=== PATIENT | male | born 1965 | race Caucasian/White ===

== ENCOUNTER 2020-01-02 20:58 | Emergency (ER) | payer OTHER ==
[~2020-01-02] VITALS: Ht 190.5 cm; Wt 128.0 kg
[2020-01-02 21:10] VITALS: BP 137/85
[2020-01-02] MEDS ORDERED: DIPH,PERTUSS(ACELL),TET VAC/PF 0.5 ML SYRINGE. VAX IM ONE (21:45)
[2020-01-02] MEDS ORDERED: LIDOCAINE 2% 20 ML VIAL. IJ ONE (21:45)
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
[2020-01-02] MEDS ORDERED: BACI28.34 TP (22:35)
[2020-01-02] MEDS ORDERED: HYDR-1179 PO (22:35)
[2020-01-02] MEDS ORDERED: CEPH-264 PO (22:35)
[2020-01-02] MEDS ORDERED: ACET500T68 PO (22:35)
[2020-01-02] MEDS ORDERED: cefTRIAXone IM 1 GM VIAL IM ONE (23:00)
== END 2020-01-02 22:45 | disposition home or self-care (01) ==
LOC: ER 20:58
DX: S61.412A Laceration without foreign body of left hand, initial encounter (principal); W22.8XXA Striking against or struck by other objects, initial encounter; Y93.89 Activity, other specified; Y92.89 Other specified places as the place of occurrence of the external cause; Y99.8 Other external cause status
CPT/HCPCS: 12002; 73130; 90471; 90715; 99284; J0696; J2001

== ENCOUNTER 2020-09-16 23:43 | Emergency (ER) | payer OTHER ==
[~2020-09-16] VITALS: Ht 193 cm; Wt 113.0 kg
[~2020-09-16 23:43] MED LIST: ACET500T68 PO; BACI28.34 TP; CEPH-264 PO; HYDR-1179 PO
[2020-09-16 23:51] VITALS: BP 145/96
[2020-09-17] MEDS ORDERED: IV RINGERS SOLUTION,LACTATED 1,000 ML IV SCH (00:30)
--- NOTE | 2020-09-17 00:32 | PHYS DOC ---
Past History Past Medical History: No Pertinent History Past Surgical History: Appendectomy, Other Additional Past Surgical Histo: UMBILICAL HERNIA, dental implants Alcohol Use: Occasionally General Adult EDM: Chief Complaint: ABDOMINAL PAIN HPI: HPI: "..I feel like I am blocked up.. obstructed... I think .. I ate too much meat.. Celebrating my daughter's job as a joinery machinist at [employer].. Patient is a 54 year old male who presents with above history and complaints of bloated feeling after a heavy meat meal. Patient has not passing gas. Has been belching quite a bit. Patient localizes discomfort in the periumbilical area. Patient has had previous umbilicus surgery for hernia. Patient normally healthy. Normally follows at [place]. No recent travel or severe ill contacts. Is retired . No recent travel. No specific ill contacts. Appendectomy and umbilicus hernia repair abdomen surgery history. No history immunosuppression. Review of Systems: Review of Systems: Constitutional: Denies fever or chills Eyes: Denies change in visual acuity HENT: Denies nasal congestion or sore throat Respiratory: Denies cough or shortness of breath Cardiovascular: Denies chest pain or edema GI: Complains of generalized abdominal pain, nausea, vomiting,. Denies bloody stools or diarrhea patient having minimal rectal gas passage. Complains of constipation. : Denies dysuria Musculoskeletal: Denies back pain or joint pain Integument: Denies rash Neurologic: Denies headache, focal weakness or sensory changes Endocrine: Denies polyuria or polydipsia Lymphatic: Denies swollen glands Psychiatric: Denies depression or anxiety Family History: Family History: Noncontributory to presentation Current Medications: Current Meds: Current Medications Medications (Trade) Dose Ordered Sig/Vikas Start Time Stop Time Status Last Admin Dose Admin Famotidine (Pepcid Vial) 20 mg 1X ONCE 09/17/20 00:30 09/17/20 00:31 UNV Ketorolac Tromethamine (Toradol 30mg Vial) 30 mg 1X ONCE 09/17/20 00:30 09/17/20 00:31 UNV Lactated Ringer's 1,000 ml @ 1,000 mls/hr Q1H 09/17/20 00:30 09/17/20 01:29 UNV Magnesium Hydroxide (Milk Of Magnesia) 2,400 mg 1X ONCE 09/17/20 00:30 09/17/20 00:31 UNV Ondansetron HCl (Zofran) 8 mg 1X ONCE 09/17/20 00:30 09/17/20 00:31 UNV Allergies: Allergies: Allergies Coded Allergies Type Severity Reaction Last Updated Verified No Known Drug Allergies 01/02/20 No Physical Exam: PE: Constitutional: Well developed, well nourished, in acute distress, non-toxic appearance. [] HENT: Normocephalic, atraumatic, bilateral external ears normal, oropharynx moist, no oral exudates, nose normal. [] Eyes: PERRLA, EOMI, conjunctiva normal, no discharge. [] Neck: Normal range of motion, no tenderness, supple, no stridor. [] Cardiovascular:Heart rate regular rhythm, no murmur [] Lungs & Thorax: Bilateral breath sounds clear to auscultation [] Abdomen: Bowel sounds hyperactive, soft, periumbilicus tenderness, umbilicus scar, old scars, no masses, no pulsatile masses. Very distended and upper abdomen. Rebound to upper abdomen moran. Skin: Warm, dry, no erythema, no rash. [] Back: No tenderness, no CVA tenderness. [] Extremities: No tenderness, no cyanosis, no clubbing, ROM intact, no edema. No Trousseau sign. Neurologic: Alert and oriented X 3, normal motor function, normal sensory function, no focal deficits noted. [] Psychologic: Affect anxious, judgement normal, mood normal. [] Current Patient Data: Vital Signs: Vital Signs Date Time Temp Pulse Resp B/P (MAP) Pulse Ox O2 Delivery O2 Flow Rate FiO2 09/16/20 23:51 98.4 87 16 145/96 (112) 98 EKG: EKG: [] Radiology/Procedures: Radiology/Procedures: [address] [address] IMAGING REPORT Signed PATIENT: NIALL CARRERAUNT: [id number] : 1965 LOCATION: ER AGE: 54 SEX: M EXAM STATUS: REG ER ORD. PHYSICIAN: MYNOR HOROWITZ MD REASON: NOT PASSING GAS OR STOOL, OMNI 300, 75ml & OMNI 240, 30ml PROCEDURE: CT ABD PELV W/ORAL&IV CONTRAST CT abdomen and pelvis with contrast PQRS statement: CT scans at this facility use dose reduction including either automated exposure control, iterative reconstructions, and /or weight based radiation dosing via mA and kV modification when appropriate to reduce radiation dose to as low as reasonably achievable. Contrast: 75 mL Omnipaque 300 intravenous contrast HISTORY: Absent flatus. No other clinical history provided. Abdomen findings: Subpleural groundglass densities at the lung bases some which are dependent as well as nondependent at the right middle lobe and bilateral lower lobes likely atelectasis. Disc bulges lower lumbar spine and L5-S1 disc osteophyte with spinal canal and neural foraminal stenoses. There is edema of the gallbladder. Liver, spleen, pancreas, adrenal glands and left kidney unremarkable. Right renal interpolar subcentimeter hypodensity too small to characterize statistically most likely small cyst given its density of 17 units. No bowel obstruction. Appendix not visualized could be surgically absent. There is some intramural fat deposition of the distal ileum and of the duodenum without inflammatory changes evident. There is some mild fluid distention of segments of the small bowel with other areas which are collapsed at the lower abdomen, however there is no dilation of bowel loops to suggest obstruction. Mild calcified likely aorta. No abdominal fluid or adenopathy. 2 cm fatty umbilical abdominal wall hernia. Pelvis findings: Bladder, prostate, rectum and bones are unremarkable. IMPRESSION: 1. Nonspecific edema of the gallbladder wall. This raises the possibility of cholecystitis. 2. No bowel obstruction or inflammatory change evident. 3. Mild groundglass densities at the lung bases some which are nondependent. This may be atelectasis although the nondependent nature some of the opacities also raises the possibility of an inflammatory process including atypical viral infection. Electronically signed by: Yvan Narayanan MD (09/17/2020 3:18 AM) [facility] [place]ATED AND SIGNED BY: YVAN NARAYANAN MD DATE: 09/17/20309 CC: MYNOR HOROWITZ MD; PCP,UNKNOWN ~MTH0 [address] [address] IMAGING REPORT Signed PATIENT: NIALL CARRERACOUNT: [id number] : 1965 LOCATION: ER AGE: 54 SEX: M EXAM STATUS: REG ER ORD. PHYSICIAN: MYNOR HOROWITZ MD REASON: NOT PASSING GAS OR STOOL, OMNI 300, 75ml & OMNI 240, 30ml PROCEDURE: CT ABD PELV W/ORAL&IV CONTRAST CT abdomen and pelvis with contrast PQRS statement: CT scans at this facility use dose reduction including either automated exposure control, iterative reconstructions, and /or weight based radiation dosing via mA and kV modification when appropriate to reduce radiation dose to as low as reasonably achievable. Contrast: 75 mL Omnipaque 300 intravenous contrast HISTORY: Absent flatus. No other clinical history provided. Abdomen findings: Subpleural groundglass densities at the lung bases some which are dependent as well as nondependent at the right middle lobe and bilateral lower lobes likely atelectasis. Disc bulges lower lumbar spine and L5-S1 disc osteophyte with spinal canal and neural foraminal stenoses. There is edema of the gallbladder. Liver, spleen, pancreas, adrenal glands and left kidney unremarkable. Right renal interpolar subcentimeter hypodensity too small to characterize statistically most likely small cyst given its density of 17 units. No bowel obstruction. Appendix not visualized could be surgically absent. There is some intramural fat deposition of the distal ileum and of the duodenum without inflammatory changes evident. There is some mild fluid distention of segments of the small bowel with other areas which are collapsed at the lower abdomen, however there is no dilation of bowel loops to suggest obstruction. Mild calcified likely aorta. No abdominal fluid or adenopathy. 2 cm fatty umbilical abdominal wall hernia. Pelvis findings: Bladder, prostate, rectum and bones are unremarkable. IMPRESSION: 1. Nonspecific edema of the gallbladder wall. This raises the possibility of cholecystitis. 2. No bowel obstruction or inflammatory change evident. 3. Mild groundglass densities at the lung bases some which are nondependent. This may be atelectasis although the nondependent nature some of the opacities also raises the possibility of an inflammatory process including atypical viral infection. Electronically signed by: Yvan Narayanan MD (09/17/2020 3:18 AM) [facility] [place] AND SIGNED BY: YVAN NARAYANAN MD DATE: 09/17/20309 CC: MYNOR HOROWITZ MD; PCP,UNKNOWN ~MTH0 0[][place] [address] IMAGING REPORT Signed PATIENT: NIALL CARRERAUNT: [id number] : 1965 LOCATION: ER AGE: 54 SEX: M EXAM STATUS: REG ER ORD. PHYSICIAN: MYNOR HOROWITZ MD REASON: pain PROCEDURE: ACUTE ABDOMEN SERIES PA chest and AP upright and supine abdomen x-rays HISTORY: Pain. FINDINGS: Heart size normal. Mediastinal silhouette is normal. No pulmonary opacities. No pleural effusions. No pneumoperitoneum. There is prominent gaseous distention of the large bowel and a prominent volume of stool within the right- sided large bowel. No dilated small bowel loops. Indeterminate pelvic calcifications most of these are lucent centered suggesting phleboliths. Bones are unremarkable. IMPRESSION: Moderate volume of stool within the right-sided colon may indicate mild constipation. No small bowel obstruction. No acute process in the chest. Electronically signed by: Yvan Narayanan MD (09/17/2020 1:12 AM) [facility] [place]CTATED AND SIGNED BY: YVAN NARAYANAN MD DATE: 09/17/20108 CC: MYNOR HOROWITZ MD; PCP,UNKNOWN ~MTH0 0 Heart Score: C/O Chest Pain: Yes HEART Score for Chest Pain: HEART Score for Chest Pain Response (Comments) Value History Slighlty/Non-Suspicious 0 ECG Normal 0 Age >45 - < 65 1 Risk Factors No Risk Factors 0 Troponin < Normal Limit 0 Total 1 Risk Factors: Risk Factors: DM, Current or recent (<one month) smoker, HTN, HLP, family history of CAD, obesity. Risk Scores: Score 0 - 3: 2.5% MACE over next 6 weeks - Discharge Home Score 4 - 6: 20.3% MACE over next 6 weeks - Admit for Clinical Observation Score 7 - 10: 72.7% MACE over next 6 weeks - Early Invasive Strategies Course & Med Decision Making: Course & Med Decision Making Pertinent Labs and Imaging studies reviewed. (See chart for details) Patient stay on a clear fluid diet for the next 2 days. No solids or milk products. Allow bowel rest. Push fluids. Take Tylenol and ibuprofen for pain. May take Zofran 8 mg up to 4 times a day for nausea and vomiting. Patient take Pepcid 20 mg twice a day. Patient to consult with primary care and plan a follow-up EGD and colonoscopy. Patient to get a gallbladder function test ultrasound scan. Suspect will eventually need a surgical consult for cholecystectomy. Patient to review his elevated blood sugars with his primary care and consider outpatient glucose tolerance testing. Patient return if any concerns. Take Pepcid 20 mg twice a day. Patient may take Zofran 8 mg at 4 times a day for active vomiting. Patient return if any concerns, but most likely need Gall bladder surgery eval. in near future. Impression: 1. Abdomen pain 2. Biliary colic 3. Elevated blood glucose suspect prediabetic if not diabetic. [] Dragon Disclaimer: Dragon Disclaimer: This electronic medical record was generated, in whole or in part, using a voice recognition dictation system. Departure Departure: Referrals: PCP,UNKNOWN (PCP) Scripts Ondansetron Hcl (ZOFRAN) 4 Mg Tablet 8 MG PO QIDPRN PRN for nv, #30 TAB Prov: MYNOR HOROWITZ MD 09/17/20 Famotidine (PEPCID) 20 Mg Tablet 20 MG PO BID for gastritis for 30 Days, #60 TAB Prov: MYNOR HOROWITZ MD 09/17/20 Dragon Disclaimer This chart was dictated in whole or in part using Voice Recognition software in a busy, high-work load, and often noisy Emergency Department environment. It may contain unintended and wholly unrecognized errors or omissions. MYNOR HOROWITZ MD Sep 17, 2020 00:32
[2020-09-17] MEDS ORDERED: ONDANSETRON PF 4 MG/2 ML VIAL. IVP ONE (00:45)
[2020-09-17] MEDS ORDERED: KETOROLAC 30 MG/ML VIAL. IVP ONE (00:45)
[2020-09-17] MEDS ORDERED: MAGNESIUM HYDROXIDE 2,400 MG/30 ML ORAL.SUSP. PO ONE (00:45)
[2020-09-17] MEDS ORDERED: FAMOTIDINE 20 MG/2 ML VIAL IVP ONE (00:45)
--- NOTE | 2020-09-17 01:15 | RAD ---
PA chest and AP upright and supine abdomen x-rays HISTORY: Pain. FINDINGS: Heart size normal. Mediastinal silhouette is normal. No pulmonary opacities. No pleural eff usions. No pneumoperitoneum. There is prominent gaseous distention of the large bowel and a prominent volume of stool within the right-sided large bowel. No dilated small bowel loops. Indeterminate pelv ic calcifications most of these are lucent centered suggesting phleboliths. Bones are unremarkable. IMPRESSION: Moderate volume of stool within the right-sided colon may indicate mild constipation. No small bowel obstruction. No acute process in the chest. Electronically signed by: Luis Narayanan MD (09/17/2020 1:12 AM) [facility]
[2020-09-17 01:20] LABS: BASO % 0 % (0-3); EOS % 0 % (0-3); HEMATOCRIT 42.5 % (39.0-53.0); HEMOGLOBIN 14.8 g/dL (13.0-17.5); LYMPH # 1.2 x10^3/uL (1.0-4.8); LYMPH % 19 % (24-48); MEAN CORPUSCULAR HEMOGLOBIN 32 pg (25-35); MEAN CORPUSCULAR HGB CONC 35 g/dL (31-37); MEAN CORPUSCULAR VOLUME 92 fL (79-100); MONO # 1.1 x10^3/uL (0.0-1.1); MONO % 17 % (0-9); NEUT % 63 % (31-73); PLATELET COUNT 221 x10^3/uL (140-400); RED BLOOD COUNT 4.61 x10^6/uL (4.30-5.70); RED CELL DISTRIBUTION WIDTH 14.3 % (11.5-14.5); WHITE BLOOD COUNT 6.3 x10^3/uL (4.0-11.0)
[2020-09-17 01:26] LABS: BACTERIA,URINE 0 /HPF (0-FEW); BILIRUBIN,URINE NEG (NEG); CLARITY,URINE CLEAR; COLOR,URINE YELLOW; GLUCOSE,URINE NEG (NEG); NITRITE,URINE NEG (NEG); SQUAMOUS EPITHELIAL CELL,UR OCC /LPF; UROBILINOGEN,URINE 0.2 mg/dL (0.2 mg/dL); WBC,URINE OCC /HPF (0-4)
[2020-09-17 01:29] LABS: CALCIUM 8.9 mg/dL (8.5-10.1); CREATININE 1.2 mg/dL (0.7-1.3); GFR 63.3
[2020-09-17 01:34] LABS: ALBUMIN 4.4 g/dL (3.4-5.0); DIRECT BILIRUBIN 0.2 mg/dL (0.0-0.2); TOTAL BILIRUBIN 1.2 mg/dL (0.2-1.0); TOTAL PROTEIN 8.8 g/dL (6.4-8.2)
--- NOTE | 2020-09-17 02:22 | EKG ---
[address] [address] Test Date: 2020-09-17 Test Time: 00:43:58 Pat Name: NIALL CARRERA Department: Room: Gender: M [employer] J[employer] Developer: HODAN : 1965 Requested By: MYNOR HOROWITZ Order Number: [id number] Reading MD: Measurements Intervals [place] Rate: 84 P: 40 CO: 166 QRS: 21 QRSD: 80 T: 35 QT: 388 QTc: 462 Interpretive Statements SINUS RHYTHM NORMAL ECG RI6.02 No previous ECG available for comparison
[2020-09-17] MEDS ORDERED: IOHEXOL 240 MG/ML 50ML VIAL. PO ONE (02:30)
[2020-09-17] MEDS ORDERED: CONTRAST GIVEN. MC PRN (02:30)
[2020-09-17] MEDS ORDERED: IOHEXOL 300 MG/ML 75 ML VIAL. IV ONE (02:30)
--- NOTE | 2020-09-17 03:21 | RAD ---
CT abdomen and pelvis with contrast PQRS statement: CT scans at this facility use dose reduction including either automated exposure cont rol, iterative reconstructions, and /or weight based radiation dosing via mA and kV modification when appropriate to reduce radiation dose to as low as reasonably achievable. Contrast: 75 mL Omnipaque 300 intravenous contrast HISTORY: Absent flatus. No other clinical history provided. Abdomen findings: Subpleural groundglass densities at the lung bases some which are dependent as well as nondependent at the right middle lobe and bilateral lower lobes likely atelectasis. Disc bulges l ower lumbar spine and L5-S1 disc osteophyte with spinal canal and neural foraminal stenoses. There is edema of the gallbladder. Liver, spleen, pancreas, adrenal glands and left kidney unremarkable. Righ t renal interpolar subcentimeter hypodensity too small to characterize statistically most likely smal l cyst given its density of 17 units. No bowel obstruction. Appendix not visualized could be surgical ly absent. There is some intramural fat deposition of the distal ileum and of the duodenum without in flammatory changes evident. There is some mild fluid distention of segments of the small bowel with o ther areas which are collapsed at the lower abdomen, however there is no dilation of bowel loops to s uggest obstruction. Mild calcified likely aorta. No abdominal fluid or adenopathy. 2 cm fatty umbilic al abdominal wall hernia. Pelvis findings: Bladder, prostate, rectum and bones are unremarkable. IMPRESSION: 1. Nonspecific edema of the gallbladder wall. This raises the possibility of cholecystitis. 2. No bowel obstruction or inflammatory change evident. 3. Mild groundglass densities at the lung bases some which are nondependent. This may be atelectasis although the nondependent nature some of the opacities also raises the possibility of an inflammatory process including atypical viral infection. Electronically signed by: Luis Narayanan MD (09/17/2020 3:18 AM) [facility]
[2020-09-17] MEDS ORDERED: ONDA4TAB7 PO (04:32)
[2020-09-17] MEDS ORDERED: FAMO-63 PO (04:32)
== END 2020-09-17 04:50 | disposition home or self-care (01) ==
LOC: ER 23:43
DX: R10.84 Generalized abdominal pain (principal); K80.50 Calculus of bile duct without cholangitis or cholecystitis without obstruction; R73.9 Hyperglycemia, unspecified; Z90.89 Acquired absence of other organs; Z98.890 Other specified postprocedural states
CPT/HCPCS: 36415; 74022; 74177; 80048; 80076; 81001; 82150; 82550; 83690; 84484; 85025; 93005; 96361; 96374; 96375; 99285; J1885; J2405; J3490; J7120; Q9966; Q9967